=== PATIENT | female | born 1975 | race Caucasian/White ===

== ENCOUNTER 2018-12-31 16:21 | Emergency (ER) | payer OTHER ==
[~2018-12-31] VITALS: Ht 154.9 cm; Wt 63.5 kg
[2018-12-31 16:37] VITALS: BP_SYST 112
--- NOTE | 2018-12-31 17:05 | NUR ---
Patient to ER bed 5 to gown for evaluation. Side rails up. Report given to Nataly CAR.
--- NOTE | 2018-12-31 17:18 | NUR ---
pt arrives from home w/ c?o dizziness since this am. Pt states that if she"moves her neck upright" she becomes.
[2018-12-31] MEDS: MECLIZINE HCL 25 MG TABLET (ANITVERT) PO ONE (17:48)
--- NOTE | 2018-12-31 17:49 | NUR ---
medicated the pt w/ Antivert per MD order.
--- NOTE | 2018-12-31 18:20 | NUR ---
Patient transported to radiology via , accompanied by abrasive grader helper.
--- NOTE | 2018-12-31 18:35 | NUR ---
pt returned from Ct scan.
[2018-12-31 19:03] VITALS: BP_SYST 112
--- NOTE | 2018-12-31 19:05 | NUR ---
Patient given written and verbal discharge instructions and verbalizes understanding. ER MD discussed with patient the results and treatment provided. Patient in stable condition. ID arm band removed. Rx of Meclizine given. Patient educated on pain management and to follow up with PMD. Pain Scale 0/10.Opportunity for questions provided and answered. Medication side effect fact sheet provided.
== END 2018-12-31 19:03 | disposition home or self-care (01) ==
LOC: SED 16:21
DX: H81.10 Benign paroxysmal vertigo, unspecified ear (principal)
CPT/HCPCS: 70450; 93005; 99284; J8597

== ENCOUNTER 2019-02-12 18:31 | Emergency (ER) | payer OTHER ==
[~2019-02-12] VITALS: Ht 154.9 cm; Wt 65.3 kg
[2019-02-12 18:35] VITALS: BP_SYST 107
[2019-02-12 19:15] LABS: BASOPHILS # (AUTO) 0.1 K/uL (0.0-0.2); BASOPHILS % (AUTO) 0.9 % (0.0-2.0); EOSINOPHILS # (AUTO) 0.2 K/uL (0.0-0.4); EOSINOPHILS % (AUTO) 1.4 % (0.0-4.0); HEMATOCRIT 39.4 % (36-48); HEMOGLOBIN 13.4 g/dL (12.0-16.0); LYMPHOCYTES # (AUTO) 2.9 K/uL (1.0-5.5); LYMPHOCYTES % (AUTO) 19.6 % (20.5-51.5); MEAN CORPUSCULAR HEMOGLOBIN 31 pg (27-31); MEAN CORPUSCULAR HGB CONC 34 % (32-36); MEAN CORPUSCULAR VOLUME 93 fL (79.0-98.0); MONOCYTES # (AUTO) 1.2 K/uL (0.0-1.0); MONOCYTES % (AUTO) 8.4 % (1.7-9.3); NEUTROPHILS # (AUTO) 10.1 K/uL (1.8-7.7); NEUTROPHILS % (AUTO) 69.7 % (40.0-70.0); PLATELET COUNT (AUTO) 366 K/uL (130-430); RED BLOOD CELL COUNT(AUTO) 4.26 MIL/uL (4.2-6.2); RED CELL DISTRIBUTION WIDTH 14.2 % (9.0-15.0); WHITE BLOOD COUNT (AUTO) 14.6 K/uL (4.8-10.8)
--- NOTE | 2019-02-12 19:31 | NUR ---
Patient to ER bed 7 to gown for evaluation. Side rails up. Report given to Robert CAR.
[2019-02-12 19:36] LABS: CALCIUM 8.6 mg/dL (8.4-11.0); CREATININE 0.56 mg/dL (0.55-1.30); POTASSIUM 3.7 mmol/L (3.5-5.1)
--- NOTE | 2019-02-12 19:45 | NUR ---
Pt brought in by . Pt awake, alert, oriented x4. Pt states that she is approx 7-8 weeks and started having bright red bleeding today, and passage of large clots. Pt states abdominal pain 5/10. Pt states that she is with 3 cesarian sections. Pt denies any other medical complaint at this time. Pt denies chest pain, nausea, vomiting, diarrhea, shortness of breath. any other medical complaint at this time.
--- NOTE | 2019-02-12 19:46 | NUR ---
Pt off unit for radiological exam. Ultrasound
[2019-02-12 20:04] LABS: TOTAL BILIRUBIN 0.4 mg/dL (0.0-1.0)
[2019-02-12 21:50] VITALS: BP_SYST 110
--- NOTE | 2019-02-12 21:50 | NUR ---
Patient given written and verbal discharge instructions and verbalizes understanding. ER MD discussed with patient the results and treatment provided. Patient in stable condition. ID arm band removed. NO IV No RX. Patient educated on pain management and to follow up with PMD. Pain Scale 0/10. Opportunity for questions provided and answered.
== END 2019-02-12 21:50 | disposition home or self-care (01) ==
LOC: SED 18:31
DX: O20.0 Threatened abortion (principal); Z3A.01 Less than 8 weeks gestation of pregnancy
CPT/HCPCS: 36415; 76801; 76817; 80053; 81002; 84702-TC; 85025; 86900; 86901; 99284